=== PATIENT | female | born 1995 | race Caucasian/White ===

== ENCOUNTER 2018-05-21 19:53 | Emergency (ER) | payer OTHER ==
[~2018-05-21] VITALS: Ht 167.6 cm; Wt 83.9 kg
--- OUTSIDE RECORDS SUMMARY | 2018-05-21 19:55 | XMS REPORT | Summary of Care ---
Author Author [facility] Outpatient Imaging [facility] Outpatient Imaging [place] Address Unknown Phone Unavailable Encounter HQ Encntr_alias(FIN) [id number] Date(s): 05/31/17 - 05/31/17 [facility] Outpatient Imaging [place] [address] [place] [address] 46- [phone] Encounter Diagnosis Radiculopathy, lumbar region (Final) - 06/05/17 Discharge Disposition: Home or Self Care Attending Physician: Madyson Krishnamurthy MD Vital Signs No data available for this section Problem List No data available for this section Allergies, Adverse Reactions, Alerts No data available for this section Medications No data available for this section Results No data available for this section Immunizations No data available for this section Procedures No data available for this section Social History No data available for this section Assessment and Plan No data available for this section
--- OUTSIDE RECORDS SUMMARY | 2018-05-21 19:55 | XMS REPORT | Clinical Summary ---
Author Author [facility] Address Unknown Phone Unavailable Care Team Providers Care Underbaster Name Role Phone Susi Jeong PCP Allergies No Known Allergies Medications End Date Status Medication Sig Dispensed Refills Start Date Active amitriptyline (ELAVIL) 25 TK 1 T PO D 3 MG tablet 8 Active BEKYREE, 28, 0.15-0.02 0 mgx21 /0.01 mg x 5 per 8 tablet Active Problems No known active problems Encounters Care Team Description Date Type Specialty Adeline Jane MA Autonomic neuropathy (Primary Dx) 05/23/2017 Orders Only Rheumatology after 05/20/2017 Family History Medical History Relation Name Comments No Known Problems Brother Half brother; same Dad No Known Problems Brother Half brother; same Dad Hypertension Father Hyperlipidemia Maternal Grandfather Hypertension Maternal Grandmother No Known Problems Mother DM, HTN, Sleep apnea before lap band Parkinsonism Paternal Grandmother Relation Name Status Comments Brother Alive Brother Alive Father Alive Maternal Grandfather Alive Maternal Grandmother Alive Mother Alive Paternal Grandmother Social History Date Tobacco Use Types Packs/Day Years Used Never Smoker Smokeless Tobacco: Never Used Alcohol Use Drinks/Week oz/Week Comments Yes Sex Assigned at Date Recorded Not on file Industry Job Start Date Occupation Not on file Not on file Not on file Travel End Travel History Travel Start No recent travel history available. Last Filed Vital Signs Not on file Plan of Treatment Health Maintenance Due Date Last Done Comments CHLAMYDIA SCREENING 2009 CERVICAL CANCER SCREENING 2014 INFLUENZA VACCINE 11/08/2017 Procedures Comments Procedure Name Priority Date/Time Associated Diagnosis CORTISOL, FREE, 24 HOUR Routine 05/27/2017 Autonomic neuropathy URINE 10:05 AM [facility] after 05/20/2017 Results * CORTISOL, FREE, 24 HOUR URINE (05/27/2017 10:05 AM [facility]) Total volume 2,100 mL [facility] Cortisol, urine free 35.4 4.0 - 50.0 mcg/24 h [facility] Comment: [facility] Analysis performed by [facility] Mass Spectrometry Cortisol, urine free 20.8 mcg/g creat [facility] Comment: [facility] Reference Range: ADULTS: 3.1-42.3 Creatinine, urine, random 1.70 0.63 - 2.50 g/24 h [facility] Comment: [facility] This test was developed and [facility] its analytical performance characteristics have been determined by [facility]. It has not been cleared or approved by FDA. This assay has been validated pursuant to the CLIA regulations and is used for clinical purposes. Narrative Performed At URINE VOLUME: [address] [facility] Resulting Agency Comment Performing Organization Information: Site ID: [id number] Name: [facility], Address: [address] [place] [id number] Director: Hollie Gutiérrez MD,PhD,[place] Performing Organization Address City/State/Zipcode Phone Number [facility] [address] [place], [place] [phone] [facility] [id number] after 05/20/2017 Insurance Payer Benefit Subscriber ID Type Phone Address Plan / Group CIG[employer] CIGNA OPEN xxxxxxxxxxx HMO ACCESS/NET WORK Advance Directives Patient has advance care planning documents on file. For more information, fabio jordan contact: Michel Graf [address] [place] [address]
--- OUTSIDE RECORDS SUMMARY | 2018-05-21 19:55 | XMS REPORT | Summary of Care ---
Author Author [facility] Outpatient Imaging [facility] Outpatient Imaging [place] Address Unknown Phone Unavailable Encounter HQ Lance_gabriel(FIN) [id number] Date(s): 05/15/17 - 05/15/17 [facility] Outpatient Imaging [place] [address] [facility] [place] [address]- [phone] Encounter Diagnosis Demyelinating disease of central nervous system, unspecified (Final) - 05/18/17 Weakness (Final) - Unspecified abnormalities of gait and mobility (Final) - Other fatigue (Final) - Abnormal findings on diagnostic imaging of other specified body structures (Final) - Discharge Disposition: Home or Self Care Attending [...]
--- OUTSIDE RECORDS SUMMARY | 2018-05-21 19:55 | XMS REPORT | Continuity of Care Document ---
Author Author [facility] Address Unknown Phone Unavailable Problems Problem Status Onset Date Classification Date Reported Comments Source R55.9 Active 03/05/2018 [facility] PER BISI Active 03/05/2018 [facility] Radiculopathy, lumbar region 06/06/2017 09/06/2017 [facility] [place] Demyelinating disease of central nervous system, unspecified 05/19/2017 08/21/2017 [facility] [place] R20.8 - OTHER DISTURBANCES OF SKIN SEN R Active 04/06/2017 [facility] [place] Weakness 08/21/2017 [facility] [place] Unspecified abnormalities of gait and mobility 08/21/2017 [facility] [place] Other fatigue 08/21/2017 [facility] [place] Abnormal findings on diagnostic imaging of other specified body structures 08/21/2017 [facility] [place] Medications Medication Details Route Status Patient Instructions Ordering Provider Order Date Source Allergies, Adverse Reactions, Alerts Substance Category Reaction Severity Reaction type Status Date Reported Comments Source Immunizations Immunization Date Given Site Status Last Updated Comments Source Results Order Name Results Value Reference Range Date Interpretation Comments Source Spine lumbar w/wo contrast MRI Spine lumbar w/wo contrast MRI Clinical Indication: M54.16 Radiculopathy, lumbar region - M54.16 Radiculopathy, lumbar region; numbness, tingling, cramping and fatigue Comparison: None TECHNIQUE: Multiplanar T1, T2, STIR weighted noncontrast MRI of the lumbar spine is performed.. Post-contrast sequences were also obtained. Contrast: 17 cc of IV gadolinium was administered. FINDINGS: There is straightening of normal lumbar lordosis. Normal vertebral body height and alignment. Marrow signal characteristics are unremarkable. No pathologic postcontrast enhancement. No intraspinous or paraspinous fluid collections. Disc space height and hydration are well maintained at all levels. Normal appearance of the conus medullaris which terminates at the L1-L2 level. No disc bulges or disc herniations. Mild facet and ligamentum flavum hypertrophy is noted at L2-L3, L3-L4, and L4-L5. Mild facet hypertrophy also seen at L5-S1. No central canal or foraminal stenoses. The visualized retroperitoneum and intra-abdominal structures are unremarkable. Paraspinous soft tissues are within normal limits. IMPRESSION: Mild multilevel facet and ligamentum flavum hypertrophy. No central canal or foraminal stenoses. Otherwise unremarkable lumbar spine MRI without and with contrast. SL: [id number] 05/31/2017 - - Read by: Juan Alberto Mcdonald MD Dictated Date/time: 06/01/17 10:08 Electronically Signed by: Juan Alberto Mcdonald MD 06/01/17 10:12 FINAL REPORT [facility] [place] Spine Thoracic w/wo contrast MRI Spine Thoracic w/wo contrast MRI EXAM: Spine Thoracic w/wo contrast MRI INDICATION: CHECKING FOR MS - R53.1 Weakness, R26.9 Unspecified abnormalities of gait and mobility,G37.9 Demyelinating disease of central nervous system, unspecified,R53.83 Other fatigue COMPARISON: MRI of the brain and cervical spine from 04/13/2017 TECHNIQUE: Multiplanar, multisequence magnetic resonance imaging of the thoracic spine was performed before and after the administration of intravenous gadolinium contrast. FINDINGS: Anatomic alignment is maintained across the thoracic spine. No acute compression fracture or subluxation is seen. No focal marrow signal abnormality is noted. The discs are normal in signal intensity and height throughout the thoracic spine. No spinal canal stenosis or neural foraminal narrowing is seen. The thoracic spinal cord is normal in signal intensity and morphology. There is scattered, multifocal enhancement of the nerve roots arising from the lower thoracic spinal cord. Paravertebral soft tissues are unremarkable. IMPRESSION: 1. Multifocal enhancement of nerve roots arising from the lower thoracic spinal cord. This may be be related to demyelinating disease process SL: [id number] 05/15/2017 - - Read by: Leobardo Kim MD Dictated Date/time: 05/15/17 14:12 Electronically Signed by: Leobardo Kim MD 05/15/17 14:20 FINAL REPORT [facility] [place] Brain w/wo contrast MRI Brain w/wo contrast MRI EXAM: MRI BRAIN WITHOUT AND WITH CONTRAST DATE: 04/13/2017 2:16 PM [facility]MR SPECIALIST INDICATION: R26.9 Unspecified abnormalities of gait and mobility. ADDITIONAL INFORMATION AND CONTRAST: None. COMPARISON: None. TECHNIQUE: Multiplanar, mutisequence MRI of the brain without and with contrast. FINDINGS: Diffusion weighted images demonstrate no focal signal abnormality. There are no significant foci of T2/FLAIR signal abnormality within the white or rincon matter. No acute intracranial hemorrhage detected. The ventricles are normal in size and symmetric. No extra-axial fluid collection identified. Rincon- white distinction is preserved. No mass lesion or midline shift detected. The intracranial arterial and venous structures demonstrate normal flow voids. Postcontrast sequences and showed no definite abnormal enhancement. No enhancing parenchymal lesion detected. The visible paranasal sinuses and skull base are unremarkable. IMPRESSION: 1. No definite acute infarct or intracranial hemorrhage detected. No definite abnormal enhancement detected. SL: [id number] 04/13/2017 - - Read by: Randy Castellanos MD Dictated Date/time: 04/14/17 11:02 Electronically Signed by: Randy Castellanos MD 04/14/17 11:09 FINAL REPORT [facility] Spine cervical w/wo contrast MRI Spine cervical w/wo contrast MRI Patient Name: PINEDA LICEA : 1995; Age: 21 years y/o Female MR: [id number] Study: Spine cervical w/wo contrast MRI 04/13/2017 2:21 PM [facility] SPECIALIST Ordering Physician: Madyson Krishnamurthy MD Clinical Indication: R26.9 Unspecified abnormalities of gait and mobility Comparison: None TECHNIQUE: Multiplanar T1, T2, STIR weighted and postcontrast MRI of the cervical spine is performed on the 1.5 Sarah magnet. Contrast: Dotarem 20 mL. FINDINGS: ALIGNMENT AND GENERAL ASSESSMENT: 1. Normal cervical alignment. 2. Mild mid cervical facet arthrosis. 3. No evidence of acute fracture, dislocation, or suspicious focal osseous lesion. 4. The cervical spinal cord signal is normal. 5. No abnormal enhancement. 6. The prevertebral and paraspinal soft tissues are normal. DISC SPACES: C2-C3:No significant disc protrusion, spinal canal narrowing, or neural foraminal narrowing. C3-C4: No significant disc protrusion or spinal canal narrowing. Mild bilateral neural foraminal narrowing related to facet arthrosis. C4-C5: No significant disc protrusion or spinal canal narrowing. Mild bilateral neural foraminal narrowing related to facet arthrosis. C5-C6: No significant disc protrusion, spinal canal narrowing, or neural foraminal narrowing. C6-C7:No significant disc protrusion, spinal canal narrowing, or neural foraminal narrowing. C7-T1: No significant disc protrusion, spinal canal narrowing, or neural foraminal narrowing. IMPRESSION: 1. Normal cervical spinal cord without evidence of multiple sclerosis or focal lesion. 2. Mild mid cervical facet arthrosis SL: ARTIE- 04/13/2017 - - Read by: Miko Urrutia MD Dictated Date/time: 04/14/17 22:50 Electronically Signed by: Miko Urrutia MD 04/14/17 22:56 FINAL REPORT [facility] Vital Signs Vital Sign Value Date Comments Source Encounters Location Location Details Encounter Type Encounter Number Reason For Visit Attending Provider ADM Date DC Date Status Source [facility] Outpatient Imaging [place] [facility] [id number] Madyson Krishnamurthy 04/13/2017 04/14/2017 [facility] Outpatient Imaging [place] [facility] [id number] Madysonjulisa Krishnamurthy 05/15/2017 05/16/2017 [facility] [id number] Madysonjulisa Krishnamurthy 05/31/2017 06/01/2017 [facility] [place] Procedures Procedure Code Date Perfomer Comments Source
--- OUTSIDE RECORDS SUMMARY | 2018-05-21 19:55 | XMS REPORT | Summary of Care ---
Author Author ALBINO GAMEZ M.D. 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 R.N. * Start : 20-Dec-2017 Active 45 Tablet Bottle Allergies and Adverse Reactions Name Dates Details No Known Drug Allergies (Allergy) Status: Active Past Medical History Name Dates Details PVC (premature ventricular contraction) (427.69, I49.3) Status: Active Procedures Procedure Dates Details [QL] QUANTIFERON(R)-TB GOLD Date: 20-Dec-2017 [QL] VITAMIN B1, PLASMA Date: 20-Dec-2017 [QH] CALCIUM Date: 20-Dec-2017 [Q] HIV 1/2 EIA AB SCREEN Date: 20-Dec-2017 [QLH] DNA (DS) ANTIBODY Date: 20-Dec-2017 [QLH] SJOGRENS ANTIBODIES (SS-A,SS-B) Date: 20-Dec-2017 [O] Xray CHEST 2 VIEWS FRONTAL AND LATERAL Date: 20-Dec-2017 History of Knee Surgery Completed History of Oral Surgery Tooth Extraction [place] [facility] Completed Immunization Name Dates Details Immunizations not documented Family History Name Dates Details Family history of Parkinson disease, symptomatic (332.0, G20) Comments: Family History Status: Active Name Dates Details Family history of cardiac disorder (V17.49, Z82.49) Status: Active Family history of diabetes mellitus (V18.0, Z83.3) Status: Active Social History Name Dates Details Unknown if ever smoked Vital Signs Date Test Result Details :01 BP Systolic 137 mm[Hg] Status: BP Diastolic 88 mm[Hg] Status: Height 66 in Status: Weight 190 lb Status: Body Mass Index Calculated 30.67 kg/m2 Status: Body Surface Area Calculated 1.96 m2 Status: Heart Rate 74 /min Status: Results Date Description Value Details :57 [QL] COLETTE PANEL, COMPREHENSIVE COLETTE SCREEN, IFA POSITIVE (Abnormal) Range: NEGATIVE Comments: COLETTE IFA is a first line screen for detecting thepresence of up to approximately 150 autoantibodies invarious autoimmune diseases. A positive COLETTE IFA resultis suggestive of autoimmune disease and reflexes totiter and pattern. Further laboratory testing may beconsidered if clinically indicated. Visit Physician FAQs for interpretation of allantibodies in the [place], prevalence, and associationwith diseases at [email or web address]/ROR919 SPECIMEN RECEIVED DATE AND TIME: DNA (DS) ANTIBODY <1 {IU/ml} (Normal) Comments: IU/mL Interpretation < or=4 Negative 5-9 Indeterminate > or=10 Positive SPECIMEN RECEIVED DATE AND TIME: SCL-70 ANTIBODY <1.0 NEG {AI} (Normal) Range: <1.0 NEG Comments: SPECIMEN RECEIVED DATE AND TIME: SM ANTIBODY <1.0 NEG {AI} (Normal) Range: <1.0 NEG SM/[employer] WORKER ANTIBODY <1.0 NEG {AI} (Normal) Range: <1.0 NEG Comments: SPECIMEN RECEIVED DATE AND TIME: SJOGREN''S ANTIBODY (SS-A) <1.0 NEG {AI} (Normal) Range: <1.0 NEG SJOGREN''S ANTIBODY (SS-B) <1.0 NEG {AI} (Normal) Range: <1.0 NEG Comments: SPECIMEN RECEIVED DATE AND TIME: :57 [QL] PROTEIN, TOTAL AND PROTEIN ELECTROPHORESIS PROTEIN, TOTAL 6.9 g/dl (Normal) Range: 6.1-8.1 Comments: SPECIMEN RECEIVED DATE AND TIME: ALBUMIN 4.2 g/dl (Normal) Range: 3.8-4.8 [id number] 0.3 g/dl (Normal) Range: 0.2-0.3 [id number] 0.6 g/dl (Normal) Range: 0.5-0.9 BETA 1 GLOBULIN 0.4 g/dl (Normal) Range: 0.4-0.6 BETA 2 GLOBULIN 0.3 g/dl (Normal) Range: 0.2-0.5 GAMMA GLOBULINS 1.1 g/dl (Normal) Range: 0.8-1.7 INTERPRETATION Comments: Normal Electrophoretic Pattern SPECIMEN RECEIVED DATE AND TIME: :57 [Q] HIV-1/2 Antigen and Antibodies, Fourth Generation, with Reflexes HIV AG/AB, 4TH GEN NON-REACTIVE (Normal) Range: NON-REACTIVE Comments: HIV-1 antigen and HIV-1/HIV-2 antibodies were notdetected. There is no laboratory evidence of HIVinfection. PLEASE NOTE: This information has been disclosed toyou from records whose confidentiality may beprotected by state law. If your state requires suchprotection, then the state law prohibits you frommaking any further disclosure of the informationwithout the specific written consent of the personto whom it pertains, or as otherwise permitted by law.A general authorization for the release of medical orother information is NOT sufficient for this purpose. For additional information please refer t [email or web address]/[email or web address](This link is being provided for informational/educational purposes only.) The performance of this assay has not been clinicallyvalidated in patients less than 2 years old. SPECIMEN RECEIVED DATE AND TIME: :57 [QL] MAGNESIUM MAGNESIUM 2.1 mg/dl (Normal) Range: 1.5-2.5 Comments: SPECIMEN RECEIVED DATE AND TIME: :57 [QL] CMP W/EGFR GLUCOSE 77 mg/dl (Normal) Range: 65-99 Comments: Fasting reference interval UREA NITROGEN (BUN) 11 mg/dl (Normal) Range: 7-25 CREATININE 0.74 mg/dl (Normal) Range: 0.50-1.10 eGFR NON- 113 {ML/MIN/1.7} (Normal) Range: > OR=60 eGFR 131 {ML/MIN/1.7} (Normal) Range: > OR=60 BUN/CREATININE RATIO NOT APPLICABLE {CALC} Range: 6-22 SODIUM 140 mmol/L (Normal) Range: 135-146 POTASSIUM 4.2 mmol/L (Normal) Range: 3.5-5.3 CHLORIDE 107 mmol/L (Normal) Range: 98-110 CARBON DIOXIDE 20 mmol/L (Normal) Range: 20-32 CALCIUM 9.3 mg/dl (Normal) Range: 8.6-10.2 PROTEIN, TOTAL 7.0 g/dl (Normal) Range: 6.1-8.1 ALBUMIN 4.3 g/dl (Normal) Range: 3.6-5.1 GLOBULIN 2.7 {G/DL__CALC} (Normal) Range: 1.9-3.7 ALBUMIN/GLOBULIN RATIO 1.6 {CALC} (Normal) Range: 1.0-2.5 BILIRUBIN, TOTAL 0.4 mg/dl (Normal) Range: 0.2-1.2 ALKALINE PHSPHATASE 69 u/l (Normal) Range: 33-115 AST 21 u/l (Normal) Range: 10-30 ALT 28 u/l (Normal) Range: 6-29 Comments: SPECIMEN RECEIVED DATE AND TIME: :57 [[facility]] HTLV I II ANTIBODY, EIA WITH POSITIVES REFLEXED TO WESTERN BLOT HTLV I/II ANTIBODY, W/REFL TO WESTERN BLOT Nonreactive Range: Nonreactive Comments: The HTLV-I/HTLV-II antibody test is FDA cleared/approved to screen donors. Use for screening innon-donors has been validated by [employer] [place]. SPECIMEN RECEIVED DATE AND TIME: :57 [[facility]] SED RATE BY MODIFIED WESTERGREN SED RATE BY MODIFIED WESTERGREN 9 mm/h (Normal) Range: < OR=20 Comments: SPECIMEN RECEIVED DATE AND TIME: :57 [QL] CBC (INCLUDES DIFF/PLT) WHITE BLOOD CELL COUNT 5.6 {Thousand/u} (Normal) Range: 3.8-10.8 RED BLOOD CELL COUNT 4.27 {Million/uL} (Normal) Range: 3.80-5.10 HEMAGLOBIN 13.0 g/dl (Normal) Range: 11.7-15.5 HEMATOCRIT 37.8 % (Normal) Range: 35.0-45.0 MCV 88.5 fL (Normal) Range: 80.0-100.0 MCH 30.4 pg (Normal) Range: 27.0-33.0 MCHC 34.4 g/dl (Normal) Range: 32.0-36.0 RDW 12.5 % (Normal) Range: 11.0-15.0 PLATELET COUNT 203 {Thousand/u} (Normal) Range: 140-400 MPV 9.8 fL (Normal) Range: 7.5-12.5 ABSOLUTE NEUTROPHILS 2867 {cells/uL} (Normal) Range: 8577-4327 ABSOLUTE LYMPHOCYTES 1988 {cells/uL} (Normal) Range: 850-3900 ABSOLUTE MONOCYTES 594 {cells/uL} (Normal) Range: 200-950 ABSOLUTE EOSINOPHILS 123 {cells/uL} (Normal) Range: 15-500 ABSOLUTE BASOPHILS 28 {cells/uL} (Normal) Range: 0-200 NEUTROPHILS 51.2 % (Normal) LYMPHOCYTES 35.5 % (Normal) MONOCYTES 10.6 % (Normal) EOSINOPHILS 2.2 % (Normal) BASOPHILS 0.5 % (Normal) Comments: SPECIMEN RECEIVED DATE AND TIME: 526569340306:57 [Q] Antinuclear Antibody, Titer and Pattern Comments: Speckled pattern is associated with mixed connectivetissue disease (MCTD), systemic lupus erythematosus(SLE), Sjogren's syndrome, dermatomyositis, andsystemic sclerosis/polymyositis overlap. COLETTE PATTERN SPECKLED (Abnormal) Comments: Speckled pattern is associated with mixed connectivetissue disease (MCTD), systemic lupus erythematosus(SLE), Sjogren's syndrome, dermatomyositis, andsystemic sclerosis/polymyositis overlap. COLETTE TITER 1:160 {titer} (Above high threshold) Comments: Reference Range <1:40 Negative 1:40-1:80 Low Antibody Level >1:80 Elevated Antibody Level SPECIMEN RECEIVED DATE AND TIME: [id number]:57 [QL] LYME DISEASE ANTIBODIES (IGG,IGM) WESTERN BLOT LYME DISEASE AB (IGG) WB NEGATIVE (Normal) Range: NEGATIVE 18 KD (IGG) BAND NON-REACTIVE (Normal) 23 KD (IGG) BAND NON-REACTIVE (Normal) 28 KD (IGG) BAND NON-REACTIVE (Normal) 30 KD (IGG) BAND NON-REACTIVE (Normal) 39 KD (IGG) BAND NON-REACTIVE (Normal) 41 KD (IGG) BAND NON-REACTIVE (Normal) 45 KD (IGG) BAND NON-REACTIVE (Normal) 58 KD (IGG) BAND NON-REACTIVE (Normal) 66 KD (IGG) BAND NON-REACTIVE (Normal) 93 KD (IGG) BAND NON-REACTIVE (Normal) LYME DISEASE AB (IGM) WB NEGATIVE (Normal) Range: NEGATIVE 23 KD (IGM) BAND NON-REACTIVE (Normal) 39 KD (IGM) BAND NON-REACTIVE (Normal) 41 KD (IGM) BAND NON-REACTIVE (Normal) Comments: As per CDC criteria, a Lyme disease IgG Immunoblot mustshow reactivity to at least 5 of 10 specific borrelialproteins to be considered positive; similarly, a positive Lyme disease IgM immunoblot requiresreactivity to 2 of 3 specific borrelial proteins.Although considered negative, IgG reactivity to fewerspecific borrelial proteins or IgM reactivity to only1 protein may indicate recent B. burgdorferi infectionand warrant testing of a later sample. A positive IgMbut negative IgG result obtained more than a monthafter onset of symptoms likely represents a false- positive IgM result rather than acute Lyme disease.In rare instances, Lyme disease immunoblot reactivitymay represent antibodies induced by exposure to otherspirochetes. SPECIMEN RECEIVED DATE AND TIME: :57 [QL] RHEUMATOID FACTOR RHEUMATOID FACTOR <14 {IU/ml} (Normal) Range: <14 Comments: SPECIMEN RECEIVED DATE AND TIME: :57 [QL] HEPATITIS B CORE AB TOTAL HEPATITIS B CORE AB TOTAL NON-REACTIVE (Normal) Range: NON-REACTIVE Comments: SPECIMEN RECEIVED DATE AND TIME: :57 [QL] ANGIOTENSIN CONVERTING ENZYME (ANDERS) [id number] ENZYME 61 u/l (Normal) Range: 9-67 Comments: SPECIMEN RECEIVED DATE AND TIME: :57 [QL] TSH, 3RD GENERATION TSH 0.98 {MIU/L} (Normal) Comments: Reference Range > or=20 Years 0.40-4.50 Ranges First trimester 0.26-2.66 Second trimester 0.55-2.73 Third trimester 0.43-2.91SPECIMEN RECEIVED DATE AND TIME: :57 [QLH] VITAMIN B12 VITAMIN B12 687 pg/ml (Normal) Range: 200-1100 Comments: SPECIMEN RECEIVED DATE AND TIME: :57 [QLH] VITAMIN D, 25-HYDROXY, LC/MS/MS VITAMIN D,25-OH,TOTAL,IA 28 ng/ml (Below low threshold) Range: 30-100 Comments: Vitamin D Status 25-OH Vitamin D: Deficiency: <20 ng/mLInsufficiency: 20 - 29 ng/mLOptimal: > or=30 ng/mL For 25-OH Vitamin D testing on patients on D2-supplementation and patients for whom quantitation of D2 and D3 fractions is required, the QuestAssureD(TM)25-OH VIT D, (D2,D3), LC/MS/MS is recommended: order code 54307 (patients >2yrs). For more information on this test, go to:http://education.[employer]/faq/GGN208(This link is being provided for informational/educational purposes only.)SPECIMEN RECEIVED DATE AND TIME: :57 [QLH] VITAMIN B6 VITAMIN B6 8.3 ng/ml Range: 2.1-21.7 Comments: Vitamin supplementation within 24 hours prior to blood draw may affect the accuracy of results. This test was developed and its analytical performance characteristics have been determined by [employer]. It has not been cleared or approved by the USFood and Drug Administration. This assay has been validated pursuant to the CLIA regulations and is used for clinical purposes.SPECIMEN RECEIVED DATE AND TIME: :57 [QLH] VITAMIN E (TOCOPHEROL) Comments: Pediatric Term Infants (Cord Blood) 1.8 - 5.8 mg/L Levels of alpha-tocopherol < 5 mg/L are consistent with VitaminE deficiency in adults ALPHA-TOCOPHEROL 10.8 mg/L Range: 5.7-19.9 Comments: Pediatric Term Infants (Cord Blood) 1.8 - 5.8 mg/L Levels of alpha-tocopherol < 5 mg/L are consistent with VitaminE deficiency in adults [id number] 1.6 mg/L Range: < 4.4 Comments: Vitamin supplementation within 24 hours prior to blood draw may affect the accuracy of results. This test was developed and its analytical performance characteristics have been determined by [employer]. It has not been cleared or approved by the USFood and Drug Administration. This assay has been validated persuant to the CLIA regulations and is used for clinical purposes.SPECIMEN RECEIVED DATE AND TIME: :57 [Q] VITAMIN B1 (THIAMINE), LC/MS/MS VITAMIN B1 (THIAMINE), LC/MS/MS 12 nmol/L Range: 8-30 Comments: Vitamin supplementation within 24 hours prior to blood draw may affect the accuracy of results. This test was developed and its analytical performance characteristics have been determined by [employer] [place]. It has not been cleared or approved by FDA. This assay has been validated pursuant to the CLIA regulations and is used for clinical purposes.SPECIMEN RECEIVED DATE AND TIME: :57 [Q] TREPONEMA PALLIDUM IGG, IGM AB PANEL, IFA FTA-ABS-IGG TNP Comments: * Test Not Performed. * * * * Age of patient is not appropriate * * for test requested. * SPECIMEN RECEIVED DATE AND TIME: :57 [QLH] RPR Comments: REPORT COMMENT:FASTING:YESDIFFICULT DRAW. PATIENT ADVISED TO RETURN FOR COLLECTION. RPR (MONITOR) W/REFL TITER (REFL) NON-REACTIVE (Normal) Range: NON-REACTIVE Comments: SPECIMEN RECEIVED DATE AND TIME: Plan of Care Name Dates Details Planned Observations Planned Goals not documented Planned Encounters Appointment; ALBINO GAMEZ M.D. On: 29-Jan-2018 14:00 Instructions Name Dates Details Instructions not documented Encounters Appointment; ALBINO GAMEZ M.D. Encounter Diagnosis: Problem not documented On: 20-Dec-2017 14:00
--- OUTSIDE RECORDS SUMMARY | 2018-05-21 19:55 | XMS REPORT | Summary of Care ---
Author Author [facility] [place] Address Unknown Phone Unavailable Encounter HQ Encntr_alias(FIN) [id number] Date(s): 04/13/17 - 04/13/17 [facility] [address], [address] [place], [place] [id number]- [phone] Discharge Disposition: Home or Self Care Attending [...]
[2018-05-21 20:51] LABS: BASOPHILS % 0.3 % (0.0-1.0); EOSINOPHILS # (AUTO) 0.1 (0.0-0.4); EOSINOPHILS % 1.8 % (0.0-6.0); HEMOGLOBIN 13.4 g/dL (12.0-16.0); LYMPHOCYTES # (AUTO) 2.4 (1.0-3.2); MEAN CORPUSCULAR HGB CONC 33.5 g/dL (31-35); MEAN CORPUSCULAR VOLUME 89.5 fL (81-99); MONOCYTES # (AUTO) 0.6 (0.2-0.8); MONOCYTES % 7.8 % (4.4-11.3); NEUTROPHILS # (AUTO) 4.6 (2.1-6.9); NEUTROPHILS % 58.8 % (38.7-80.0); PLATELET COUNT 231 x10e3/uL (140-360); RED BLOOD COUNT 4.47 x10e6/uL (3.6-5.1); RED CELL DISTRIBUTION WIDTH 12.6 % (11.7-14.4)
[2018-05-21 21:09] LABS: ALANINE AMINOTRANSFERASE 13 IU/L (0-55); ALBUMIN 3.5 g/dL (3.5-5.0); ALBUMIN/GLOBULIN RATIO 0.9 (0.8-2.0); ALKALINE PHOSPHATASE 57 IU/L (40-150); ANION GAP 12.9 mmol/L (8-16); BLOOD UREA NITROGEN 13 mg/dL (7-26); BUN/CREATININE RATIO 14 (6-25); CARBON DIOXIDE 21 mmol/L (22-29); CHLORIDE 107 mmol/L (98-107); CREATININE, SERUM 0.96 mg/dL (0.57-1.11); EST GLOMERULAR FILTRATION RATE > 60 ML/MIN (60-); GLUCOSE 119 mg/dL (74-118); MAGNESIUM 2.4 MG/DL (1.3-2.1); POTASSIUM 3.9 mmol/L (3.5-5.1); SODIUM 137 mmol/L (136-145)
[2018-05-21 22:59] LABS: CLARITY,URINE CLOUDY (CLEAR); COLOR,URINE YELLOW (YELLOW)
[2018-05-21 23:00] LABS: BACTERIA,URINE MANY /HPF; BILIRUBIN,URINE NEGATIVE (NEGATIVE); KETONES,URINE NEGATIVE (NEGATIVE); LEUKOCYTE ESTERASE ,URINE 1+ (NEGATIVE); NITRITE,URINE NEGATIVE (NEGATIVE); PROTEIN,URINE DIPSTICK NEGATIVE (NEGATIVE); TRANSITIONAL EPI CELLS,URINE MANY; URINE UROBILINOGEN 0.2 mg/dL (0.2 - 1)
[2018-05-21 23:01] LABS: EPITHELIAL CELLS,URINE MODERATE /LPF
[2018-05-21 23:47] VITALS: BP 141/80
== END 2018-05-21 23:55 | disposition home or self-care (01) ==
LOC: ER 19:53
DX: R00.2 Palpitations (principal); R07.89 Other chest pain; I49.3 Ventricular premature depolarization; N30.90 Cystitis, unspecified without hematuria; I10 Essential (primary) hypertension
CPT/HCPCS: 36415; 80053; 81001; 83735; 84702; 85025; 93005; 99283